=== PATIENT | female | born 1955 | race Caucasian/White ===

== ENCOUNTER → 2022-04-20 | Outpatient (CLI) | payer MEDICARE ==
[~2022-04-20] MED LIST: ALDACTONE100 MG PO; ALENDRONATE SODI5 MG; AMBIEN10 MG PO; CELEBREX200 MG PO; COMBIVENT RESPIM4 GM IH; DICYCLOMINE HCL10 MG PO; EFFEXOR XR150 MG PO; FOLIC ACID0.4 MG PO; GLIPIZIDE5 MG PO; LACTULOSE20 GM/30 M PO; LANTUS 3ML100 UNITS/; LASIX40 MG PO; METFORMIN HCL500 MG PO; NEURONTIN100 MG PO; PRILOSEC OTC20 MG; PROVENTIL HFA6.7 GM INH; SEROQUEL200 MG; TRELEGY ELLIPT1 EACH; URSODIOL300 MG PO; VITAMIN D310 MCG; ZYRTEC10 M3
[2022-04-20 11:13] LABS: EOSINOPHILS # (AUTO) 0.1 (0.0-0.4); EOSINOPHILS % 3.6 % (0.0-6.0); HEMATOCRIT 26.7 % (34.2-44.1); HEMOGLOBIN 8.1 g/dL (12.0-16.0); LYMPHOCYTES # (AUTO) 0.5 (1.0-3.2); MEAN CORPUSCULAR HEMOGLOBIN 23.8 pg (28-32); MEAN CORPUSCULAR HGB CONC 30.3 g/dL (31-35); MEAN CORPUSCULAR VOLUME 78.5 fL (81-99); MONOCYTES # (AUTO) 0.2 (0.2-0.8); MONOCYTES % 10.2 % (4.4-11.3); NEUTROPHILS # (AUTO) 1.2 (2.1-6.9); NEUTROPHILS % 60.7 % (38.7-80.0); RED CELL DISTRIBUTION WIDTH 16.6 % (11.7-14.4)
[2022-04-20 11:22] LABS: PLATELET COUNT 74 x10e3/uL (140-360)
[2022-04-20 11:33] LABS: INR 1.11; PARTIAL THROMBOPLASTIN TIME 33.2 seconds (23.8-35.5); PROTHROMBIN TIME 15.3 seconds (11.9-14.5)
[2022-04-20 11:42] LABS: ALBUMIN 2.8 g/dL (3.5-5.0); ALBUMIN/GLOBULIN RATIO 0.6 (0.8-2.0); ANION GAP 15.6 mmol/L (8-16); CALCIUM 8.7 mg/dL (8.4-10.2); CREATININE, SERUM 1.32 mg/dL (0.57-1.11); POTASSIUM 3.6 mmol/L (3.5-5.1)
== END ==
LOC: LAB 10:53 → EDSTATUS 04-24 15:00
PROVIDERS: ATTEND Internal Medicine Gastroenterology
DX: Z01.810 Encounter for preprocedural cardiovascular examination (principal); Z01.812 Encounter for preprocedural laboratory examination; R11.2 Nausea with vomiting, unspecified; I85.00 Esophageal varices without bleeding; K74.60 Unspecified cirrhosis of liver
CPT/HCPCS: 0223U; 36415; 80053; 85025; 85610; 85730; 93005

== ENCOUNTER → 2022-04-27 | Outpatient (CLI) | payer MEDICARE | LOC: US 12:37 | PROVIDERS: ATTEND Internal Medicine Gastroenterology | DX: K71.7 Toxic liver disease with fibrosis and cirrhosis of liver (principal) | CPT/HCPCS: 76705 ==

== ENCOUNTER → 2022-09-25 | Outpatient (CLI) | payer MEDICARE ==
[~2022-09-25] MED LIST changes: +ALBUMIN 25% 12.5GM 50ML 150 ML IV ONE
[2022-09-25 12:59] LABS: HEMOGLOBIN 9.2 g/dL (12.0-16.0)
[2022-09-25 13:14] LABS: INR 1.18; PARTIAL THROMBOPLASTIN TIME 38.8 seconds (23.8-35.5); PROTHROMBIN TIME 15.2 seconds (11.9-14.5)
== END ==
LOC: US 11:59
PROVIDERS: ATTEND Internal Medicine Gastroenterology
DX: K70.31 Alcoholic cirrhosis of liver with ascites (principal)
CPT/HCPCS: 36415; 49083; 76700; 85014; 85049; 85610; 85730; C1729

== ENCOUNTER → 2023-02-07 | Outpatient (CLI) | payer MEDICARE ==
[~2023-02-07] MED LIST changes: -ALBUMIN 25% 12.5GM 50ML 150 ML IV ONE; +ALBUMIN 25% 12.5GM 50ML 200 ML IV ONE
[2023-02-07 09:13] LABS: BASOPHILS % 0.7 % (0.0-1.0); EOSINOPHILS # (AUTO) 0.1 (0.0-0.4); EOSINOPHILS % 2.6 % (0.0-6.0); HEMATOCRIT 29.5 % (34.2-44.1); HEMOGLOBIN 9.6 g/dL (12.0-16.0); LYMPHOCYTES # (AUTO) 0.6 (1.0-3.2); LYMPHOCYTES % 21.5 % (18.0-39.1); MEAN CORPUSCULAR HGB CONC 32.5 g/dL (31-35); MONOCYTES # (AUTO) 0.3 (0.2-0.8); MONOCYTES % 11.3 % (4.4-11.3); NEUTROPHILS # (AUTO) 1.7 (2.1-6.9); NEUTROPHILS % 63.2 % (38.7-80.0); PLATELET COUNT 74 x10e3/uL (140-360); RED BLOOD COUNT 3.43 x10e6/uL (3.6-5.1)
[2023-02-07 09:31] LABS: INR 1.12; PROTHROMBIN TIME 14.9 seconds (11.9-14.5)
[2023-02-07 09:32] LABS: PARTIAL THROMBOPLASTIN TIME 40.6 seconds (23.8-35.5)
== END ==
LOC: US 08:42
PROVIDERS: ATTEND Internal Medicine Gastroenterology
DX: K70.31 Alcoholic cirrhosis of liver with ascites (principal)
CPT/HCPCS: 36415; 49083; 85025; 85610; 85730

== ENCOUNTER → 2023-03-04 | Outpatient (CLI) | payer MEDICARE ==
[~2023-03-04] MED LIST changes: +ALBUMIN 25% 12.5GM 50ML 150 ML IV ONE; -ALBUMIN 25% 12.5GM 50ML 200 ML IV ONE
== END ==
LOC: US 08:19
PROVIDERS: ATTEND Internal Medicine Gastroenterology
DX: K70.31 Alcoholic cirrhosis of liver with ascites (principal)
CPT/HCPCS: 49083